=== PATIENT | female | born 1955 | race Caucasian/White ===

== ENCOUNTER → 2018-01-21 | Outpatient (CLI) | payer OTHER ==
[~2018-01-21] MED LIST: ACET-2743 PO; BUPR-47 PO; CITA-107 PO
== END | disposition home or self-care (01) ==
LOC: RAH 12:54
PROVIDERS: ATTEND Internal Medicine
DX: R92.8 Other abnormal and inconclusive findings on diagnostic imaging of breast (principal); Z85.3 Personal history of malignant neoplasm of breast
CPT/HCPCS: 77066

== ENCOUNTER → 2018-01-25 | Outpatient (CLI) | payer OTHER ==
[~2018-01-25] MED LIST changes: +IOHEXOL-350 50ML VIAL IV ONE
== END | disposition home or self-care (01) ==
LOC: RAH 13:06
PROVIDERS: ATTEND Internal Medicine
DX: R63.4 Abnormal weight loss (principal); M47.895 Other spondylosis, thoracolumbar region; Z85.118 Personal history of other malignant neoplasm of bronchus and lung
CPT/HCPCS: 71260; Q9967

== ENCOUNTER → 2018-08-06 | Outpatient (CLI) | payer OTHER ==
[~2018-08-06] MED LIST changes: -IOHEXOL-350 50ML VIAL IV ONE
== END | disposition home or self-care (01) ==
LOC: RAH 14:38
PROVIDERS: ATTEND Internal Medicine
DX: M50.321 Other cervical disc degeneration at C4-C5 level (principal); M48.03 Spinal stenosis, cervicothoracic region; M47.813 Spondylosis without myelopathy or radiculopathy, cervicothoracic region; M40.40 Postural lordosis, site unspecified
CPT/HCPCS: 72040

== ENCOUNTER → 2019-01-25 | Outpatient (CLI) | payer OTHER | END | disposition home or self-care (01) | LOC: RAH 13:11 | PROVIDERS: ATTEND Internal Medicine | DX: R92.2 Inconclusive mammogram (principal); R92.0 Mammographic microcalcification found on diagnostic imaging of breast | CPT/HCPCS: 77066 ==

== ENCOUNTER → 2020-02-20 | Outpatient (CLI) | payer OTHER | END | disposition home or self-care (01) | LOC: RAH 14:25 | PROVIDERS: ATTEND Internal Medicine | DX: R92.2 Inconclusive mammogram (principal); R92.8 Other abnormal and inconclusive findings on diagnostic imaging of breast; I25.10 Atherosclerotic heart disease of native coronary artery without angina pectoris; Z85.3 Personal history of malignant neoplasm of breast | CPT/HCPCS: 77066 ==

== ENCOUNTER → 2023-07-02 | Outpatient (CLI) | payer OTHER ==
[~2023-07-02] MED LIST changes: -BUPR-47 PO; +BUPR-49 PO
== END | disposition home or self-care (01) ==
LOC: RAH 10:53
PROVIDERS: ATTEND Internal Medicine
DX: R92.0 Mammographic microcalcification found on diagnostic imaging of breast (principal); Z85.3 Personal history of malignant neoplasm of breast
CPT/HCPCS: 77066

== ENCOUNTER → 2024-01-20 | Outpatient (CLI) | payer OTHER ==
--- NOTE | 2024-01-21 09:01 | HMCIMG ---
PROCEDURE: MAMMO DX UNILATERAL RIGHT HISTORY: Calcification COMPARISON: 07/02/2023 TECHNIQUE: Right breast digital diagnostic mammogram with CAD was performed. Additional magnification views were obtained. FINDINGS: The breasts are extremely dense which lowers the sensitivity of mammogram. A cluster of microcalcifications is seen in the upper outer quadrant of the right breast . This is slightly increase in numbers from previous study of March 29, 2021. Stereotactic mammographic guidance core biopsy is recommended. There is brownish discharge when doing the compression images of right breast and ultrasound is recommended for further evaluation. There is no other evidence of a dominant mass, or suspicious microcalcification. There is no evidence of nipple retraction or skin thickening. IMPRESSION: 1. A cluster of microcalcifications is seen in the upper outer quadrant of the right breast . This is slightly increase in numbers from previous study of March 29, 2021. Stereotactic mammographic guidance core biopsy is recommended. There is brownish discharge when doing the compression images of right breast and ultrasound is recommended for further evaluation. Stereotactic mammographic guidance core biopsy is recommended after the ultrasound images. BI-RADS: CATEGORY 0: INCOMPLETE. NEED ADDITIONAL IMAGING EVALUATION Recommend monthly self breast exam as well as annual clinical examination. A negative x-ray should not delay biopsy if a dominant or clinically suspicious mass is present, since 8-10% of cancers are not identified by mammography. Dense breasts particularly, may obscure an underlying neoplasm. Some of these may be detected clinically and therefore, clinical examination is an essential part of breast evaluation.
== END | disposition home or self-care (01) ==
LOC: RAH 13:54
PROVIDERS: ATTEND Internal Medicine
DX: R92.1 Mammographic calcification found on diagnostic imaging of breast (principal); R92.341 Mammographic extreme density, right breast; R92.8 Other abnormal and inconclusive findings on diagnostic imaging of breast
CPT/HCPCS: 77065

== ENCOUNTER → 2024-02-10 | Outpatient (CLI) | payer OTHER ==
--- NOTE | 2024-02-10 13:05 | HMCIMG ---
US BREAST LIMITED UNILATERAL REASON: MASS/LUMP OUTER QUADRANT COMPARISON: Mammogram 01/20/2024 TECHNIQUE: Right breast ultrasound was performed. FINDINGS: There is a focal nodule in the 6:00 position of the right breast. This is well-circumscribed measuring 5 x 9 mm. This does not demonstrate acoustical shadowing. A six-month follow-up ultrasound of this lesion is recommended to confirm stable appearance. There is a 5 mm cyst in the liver, position. There are no other cysts or masses. Breast parenchyma appears otherwise normal. There is no architectural distortion or acoustical shadowing. IMPRESSION: 1. 9 mm nodule 6:00 position of the right breast, overall benign appearance, 6 month follow-up ultrasound recommended to confirm stable appearance.
== END | disposition home or self-care (01) ==
LOC: RAH 10:37
PROVIDERS: ATTEND Internal Medicine
DX: N63.15 Unspecified lump in the right breast, overlapping quadrants (principal)
CPT/HCPCS: 76642

== ENCOUNTER → 2024-09-20 | Outpatient (CLI) | payer OTHER ==
--- NOTE | 2024-09-21 07:49 | HMCIMG ---
EXAM: CT Cardiac calcium scoring. CLINICAL HISTORY: Screening. TECHNIQUE: Thin collimated axial CT cardiac images were obtained. A CT scan is done according to ALARA (As Low As Reasonably Achievable). CONTRAST: None. COMPARISON: None provided. FINDINGS: Calcium Score: VESSEL Number of lesions Volume mm3 Equi. Mass/mg Calcium score LM 0 0 - 0 LAD 5 65.1 - 88.7 LCX 1 9.7 - 8.1 RCA 2 5.0 - 7.7 Total 8 79.8 - 104.5 IMPRESSION: The total calcium score is 104.5. This corresponds to the 99th percentile. Shift of the mediastinum to the right. Right pleural effusion. A dedicated chest CT is recommended. /[place]
== END | disposition home or self-care (01) ==
LOC: RAH 14:38
PROVIDERS: ATTEND Internal Medicine
DX: Z13.6 Encounter for screening for cardiovascular disorders (principal); J90 Pleural effusion, not elsewhere classified
CPT/HCPCS: 75571

== ENCOUNTER → 2024-10-05 | Outpatient (CLI) | payer OTHER ==
[~2024-10-05] MED LIST changes: +IOHEXOL 350 MG/ML 100ML INFUS..BTL IV ONE
--- NOTE | 2024-10-06 10:51 | HMCIMG ---
EXAMINATION: CT Chest with and without Intravenous Contrast CLINICAL HISTORY: Patient presents with pleural effusion. COMPARISON: CT chest dated January 25, 2018. TECHNIQUE: Axial computed tomography images of the chest with and without intravenous contrast. CONTRAST: Administered intravenously. FINDINGS: LUNGS: Stable postsurgical changes from a right pneumonectomy with a large loculated right pleural effusion with associated pleural thickening. Mediastinal and tracheal deviation toward the right. Compensatory hyperinflation of the left lung. Subsegmental atelectasis and fibrotic strands in the left upper and lower lobes. Paraseptal emphysematous changes with thin subpleural bullae in the left upper lobe. No pulmonary mass. PLEURAL SPACES: No pneumothorax. Large loculated right pleural effusion with pleural thickening as described above. HEART: No cardiomegaly. No significant pericardial effusion. LYMPH NODES: No lymphadenopathy is evident. BONES: Mild dorsolumbar dextroscoliosis. No focal osseous abnormality or acute fracture. UPPER ABDOMEN: The gallbladder is surgically absent. The remaining upper abdominal solid organs are unremarkable. IMPRESSION: Stable postsurgical changes from a right pneumonectomy with a large loculated right pleural effusion with associated pleural thickening. Compensatory hyperinflation of the left lung. Subsegmental atelectasis and fibrotic strands in the left upper and lower lobes. Paraseptal emphysema with thin subpleural bullae in the left upper lobe. Mild dorsolumbar dextroscoliosis. Surgical absence of the gallbladder. /[place]
== END | disposition home or self-care (01) ==
LOC: RAH 13:11
PROVIDERS: ATTEND Internal Medicine
DX: J98.11 Atelectasis (principal); J98.4 Other disorders of lung; J84.10 Pulmonary fibrosis, unspecified; J90 Pleural effusion, not elsewhere classified; J39.8 Other specified diseases of upper respiratory tract; J43.8 Other emphysema; M41.86 Other forms of scoliosis, lumbar region; Z90.49 Acquired absence of other specified parts of digestive tract; Z90.2 Acquired absence of lung [part of]
CPT/HCPCS: 71270; Q9967